=== PATIENT | female | born 1995 | race Caucasian/White ===

== ENCOUNTER 2018-02-07 09:00 | Day surgery (SDC) | payer BC | END 2018-02-11 09:09 | disposition home or self-care (01) | LOC: SDS 09:00 | DX: J32.8 Other chronic sinusitis (principal); Z53.9 Procedure and treatment not carried out, unspecified reason ==

== ENCOUNTER 2018-04-03 08:28 | Day surgery (SDC) | payer BC ==
[~2018-04-03 08:28] MED LIST: DEXAMETHASONE 4 MG/ML 5 ML INJ
[2018-04-03] MEDS ORDERED: ONDANSETRON 4 MG INJ (10:10)
[2018-04-03] MEDS ORDERED: FENTAnyl 50 MCG/ML VIAL (10:10)
[2018-04-03] MEDS ORDERED: MIDAZOLAM 1 MG/ML 2 ML INJ (10:11)
[2018-04-03] MEDS ORDERED: PROPOFOL 20 ML (10:43)
[2018-04-03] MEDS ORDERED: LIDOCAINE 2% (SDV) 5 ML INJ (10:43)
[2018-04-03] MEDS ORDERED: SUCCINYLCHOLINE CHLORIDE 100 MG/5 ML SYG IV (10:44)
[2018-04-03] MEDS ORDERED: OXYMETAZOLINE 0.05% 15 ML NAS SPRAY NASAL (10:48)
[2018-04-03] MEDS: LIDOCAINE 1%/EPI (1:100,000) (MDV) 20 ML (10:53)
[2018-04-03] MEDS: OXYMETAZOLINE 0.05% 15 ML NAS SPRAY NASAL (10:54)
[2018-04-03] MEDS ORDERED: DIPHENHYDRAMINE 50 MG INJ IV (11:00)
[2018-04-03] MEDS ORDERED: ONDANSETRON 4 MG INJ IV (11:00)
[2018-04-03] MEDS ORDERED: FENTAnyl 50 MCG/ML VIAL IV ×2 (11:00)
[2018-04-03] MEDS ORDERED: LEVALBUTEROL (NEB) 1.25 MG/0.5 ML AMP HHN (11:00)
[2018-04-03] MEDS ORDERED: MEPERIDINE 25 MG INJ IV (11:00)
[2018-04-03] MEDS ORDERED: HYDROmorphONE 1 MG/5 ML IV SYRINGE IV ×2 (11:00)
== END 2018-04-03 13:06 | disposition home or self-care (01) ==
LOC: SDS 08:28
DX: T17.1XXA Foreign body in nostril, initial encounter (principal); X58.XXXA Exposure to other specified factors, initial encounter
CPT/HCPCS: 31237; 84703; 88304; 88311